=== PATIENT | female | born 1980 | race Caucasian/White ===

== ENCOUNTER 2023-07-22 14:49 | Outpatient (CLI) | payer BC, SELFPAY ==
--- NOTE | 2023-07-22 14:49 | US_ITS ---
PROCEDURE: US TRANSVAGINAL CLINICAL INDICATION: abnormal uterine bleeding COMPARISON: No exams were available for comparison FINDINGS: Transvaginal sonographic images of the pelvis were obtained. UTERUS: 8.2cm x 4.7 cmx 4.2cm retroflexed with a combined endometrial thickness of 13.1mm-18.0 mm. An 8.3 mm nabothian cyst is seen in the cervix. LEFT OVARY: 2.1cmx1.2cmx1.3cm with a volume of 1.6ml. RIGHT OVARY: 2.4cmx 2.0 cmx1.6 cm with a volume of 4.1ml. Both ovaries are seen and appear normal. Doppler flow to both ovaries are seen. There is no fluid in the cul-de-sac. IMPRESSION: 1. Retroflexed uterus normal in shape and size. 2. The endometrium appears upper limits of normal in thickness. 3. The endometrial/myometrial junction appears irregular, possible adenomyosis. 4. Both ovaries are seen and appear normal. 5. No fluid in the cul-de-sac Dictated by: Maikol Montes MD 07/22/2023 17:27 Maikol Montes MD in [facility] 07/22/2023 17:27
--- NOTE | 2023-07-22 14:49 | MM_ITS ---
PROCEDURE INFORMATION: Exam: MG Bilateral Screening 3D Mammography Exam date and time: 07/22/2023 3:30 PM Age: 43 years old Clinical indication: Screening mammogram TECHNIQUE: Imaging protocol: Bilateral Screening tomosynthesis and 2D mammography including computer-aided detection (CAD) when performed. COMPARISON: No relevant prior studies available. FINDINGS: MAMMOGRAPHY: Breast composition: There are scattered areas of fibroglandular density. Mass: None. Architectural distortion: No new or suspicious architectural distortion. Calcifications: No new or suspicious calcifications are present Asymmetric density: No new or suspicious asymmetric density is present Skin thickening: None. Axillary adenopathy: None. IMPRESSION: No mammographic evidence of malignancy. Recommend annual screening mammography unless otherwise clinically indicated. ASSESSMENT: BI-RADS category 1: Negative
== END 2023-07-22 23:59 ==
PROVIDERS: PCP Obstetrics & Gynecology; Visit Provider Obstetrics & Gynecology
DX: Z12.31 Encounter for screening mammogram for malignant neoplasm of breast (principal); N93.9 Abnormal uterine and vaginal bleeding, unspecified
CPT/HCPCS: 76830; 77063; 77067